=== PATIENT | male | born 1975 | race Caucasian/White ===

== ENCOUNTER 2017-10-30 00:22 | Day surgery (SDC) | payer BC ==
[~2017-10-30 00:22] MED LIST: ASPI81EC; ASPI81EC PO; Ativan1 MG PO; BUPR150ER PO; COLC.6 PO; CRUTCH2 USE; CYCL10 PO; Cellcept500 MG PO; HYDACE5 PO; LATA.005SO BOTHEYES; LATA.005SO OD; MYCO250; MYCO250 PO; Norco 5-325 Ta1 EACH PO; ONDA8 PO; OXYACE7.5T PO; PRED FORTE; PRED5 PO; Percocet 5-3251 EACH PO; Remicade100 MG IV; TIMO.25OPS; TRAZ100; TRAZ100 PO; VIIBRYD40 MG PO; Zofran8 MG PO; [UNRECOGNIZED DRUG - MIXTURE]; [UNRECOGNIZED DRUG - REMARK]; vibrid PO
[2017-10-30 14:31] LABS: BASOPHILS ABSOLUTE AUTO 0.03 K/mm3 (0.00-0.23); BASOPHILS PERCENT AUTO 1 % (0-2); EOSINOPHILS ABSOLUTE AUTO 0.07 K/mm3 (0.00-0.68); EOSINOPHILS PERCENT AUTO 1 % (0-6); Hematocrit 42.7 % (37.0-53.0); Hemoglobin 14.9 g/dL (13.5-17.5); IMMATURE GRAN ABSOLUTE AUTO 0.01 K/mm3 (0.00-0.10); IMMATURE GRAN PERCENT AUTO 0 % (0-1); LYMPHOCYTES PERCENT AUTO 24 % (21-46); MONOCYTES ABSOLUTE AUTO 0.56 K/mm3 (0.16-1.47); MONOCYTES PERCENT AUTO 10 % (4-13); Mean Corpuscular HGB 31.4 pg (26.0-34.0); Mean Corpuscular HGB Conc 34.9 g/dL (31.5-36.5); Mean Corpuscular Volume 90 fL (80-100); Mean Platelet Volume 11.2 fL (9.1-12.4); NEUTROPHILS ABSOLUTE AUTO 3.54 K/mm3 (1.96-9.15); NEUTROPHILS PERCENT AUTO 64 % (41-73); Platelet Count 157 K/mm3 (150-400); RDW Coefficient Variation 12.6 % (11.7-14.2); RDW Standard Deviation 41.2 fL (35.1-46.3); Red Blood Cell Count 4.74 M/mm3 (4.30-5.90); White Blood Cell Count 5.51 K/mm3 (4.00-11.30)
[2017-10-30 14:52] LABS: Alanine Aminotransfer (ALT/SGP 25 U/L (12-78); Albumin, Blood 3.7 g/dL (3.4-5.0); Albumin/Globulin Ratio 0.9 (0.8-1.8); Alk Phos 73 U/L (50-136); Anion Gap 7 mmol/L (6-16); Aspartate Aminotrans (AST/SGOT 20 U/L (12-37); Bilirubin, Direct 0.1 mg/dL (0.0-0.3); Bilirubin, Indirect 0.4 mg/dL (0.1-0.7); Bilirubin, Total 0.5 mg/dL (0.1-1.0); Blood Urea Nitrogen 20 mg/dL (8-24); Bun/Creatinine Ratio 20.4 (12.0-20.0); CO2, Blood 26 mmol/L (21-32); Calcium, Blood 8.7 mg/dL (8.5-10.1); Chloride, Blood 107 mmol/L (98-108); Creatinine, Blood 0.98 mg/dL (0.60-1.20); Globulin, Blood 3.9 g/dL (2.2-4.0); Glomerular Filtration Rate >60 (60-); Glucose, Blood 93 mg/dL (70-99); Sodium, Blood 140 mmol/L (136-145); Total Protein, Blood 7.6 g/dL (6.4-8.2)
== END 2017-10-30 16:19 | disposition home or self-care (01) ==
LOC: ATC 00:22
PROVIDERS: Ophthalmology
DX: M35.2 Behcet's disease (principal)
CPT/HCPCS: 80048; 80076; 85025; 96413; 96415; J1745; J7050

== ENCOUNTER → 2019-09-12 | Outpatient (CLI) | payer BC | END | disposition home or self-care (01) | LOC: LAB SHORT 11:29 → PLD 11:29 | DX: C44.519 Basal cell carcinoma of skin of other part of trunk (principal) | CPT/HCPCS: 88305 ==

== ENCOUNTER 2021-10-08 07:53 | Day surgery (SDC) | payer BC ==
[~2021-10-08] VITALS: Ht 170.2 cm; Wt 93.4 kg
[~2021-10-08 07:53] MED LIST changes: +ASPI81CH PO; +KRATOM; +NAPR500 PO; +PROP10 PO
--- NOTE | 2021-10-08 08:30 | NUR ---
Ambulatory in Day Surgery. Pre-Op teaching done. Pt verbalizes understanding. Patient confirms NPO status and agrees with scheduled surgery. Patient States Post-Procedure ride home has been arranged. Lungs clear T/O to Auscultation. History, Chart, Medications and Allergies reviewed before start of procedure.
--- NOTE | 2021-10-08 10:23 | NUR ---
DRESSING ON BACK OF PT NECK COVERED WITH WINDOW TAPE OVER GAUZE. NO DRAINAGE, INFLAMMATION NOTED, DRESSING IS CLEAN, DRY AND INTACT.
--- NOTE | 2021-10-08 10:38 | NUR ---
Patient up to Ambulate independently. Gait steady. Discharge instructions reviewed with patient. Patient verbalizes understanding. Copy given to patient to take home. Dressing to procedure site clean, dry, intact with no visible drainage, swelling, erythema or bruising noted. Patient States Post-Procedure ride home has been arranged. PT LEFT DEPARTMENT BY AMBULATED SINCE NO SEDATION GIVEN. ALL BELONGINGS RETURNED TO PATIENT THAT HE CAME TO [facility] WITH.
== END 2021-10-10 03:38 | disposition home or self-care (01) ==
LOC: ORSCMMR 07:53 → ORD 09:15 → ORSCMMR 10-10 03:38
PROVIDERS: Surgery
PROC: 0JB50ZX Excision of Left Neck Subcutaneous Tissue and Fascia, Open Approach, Diagnostic (ICD-10-PCS; principal; 2021-10-08 09:15)
DX: L72.0 Epidermal cyst (principal); F41.8 Other specified anxiety disorders; Z86.73 Personal history of transient ischemic attack (TIA), and cerebral infarction without residual deficits; G47.33 Obstructive sleep apnea (adult) (pediatric); Z79.899 Other long term (current) drug therapy; Z79.82 Long term (current) use of aspirin
CPT/HCPCS: 88304; A9270; J0171; J0690; J2250; J2704; J3010; J7120

== ENCOUNTER 2025-08-20 11:54 | Day surgery (SDC) | payer BC ==
[~2025-08-20] VITALS: Ht 170.2 cm; Wt 81.8 kg
[2025-08-20] MEDS ORDERED: GABA300 (12:43)
[2025-08-20] MEDS ORDERED: DESVENLAFAXINE50 MG (12:43)
[2025-08-20] MEDS ORDERED: OXCA150 (12:43)
[2025-08-20 15:44] VITALS: BP 133/66
== END 2025-08-20 15:52 | disposition home or self-care (01) ==
LOC: ORSCSDS 11:54
PROVIDERS: Internal Medicine Gastroenterology
PROC: 0DJD8ZZ Inspection of Lower Intestinal Tract, Via Natural or Artificial Opening Endoscopic (ICD-10-PCS; principal; 2025-08-20 13:30)
DX: Z12.11 Encounter for screening for malignant neoplasm of colon (principal); Z80.0 Family history of malignant neoplasm of digestive organs; Z83.710 Family history of adenomatous and serrated polyps; M35.2 Behcet's disease; Z86.73 Personal history of transient ischemic attack (TIA), and cerebral infarction without residual deficits; G47.33 Obstructive sleep apnea (adult) (pediatric); F41.8 Other specified anxiety disorders; Z79.82 Long term (current) use of aspirin; Z79.899 Other long term (current) drug therapy
CPT/HCPCS: J2704; J7120